=== PATIENT | female | born 1955 | race Caucasian/White ===

== ENCOUNTER → 2024-11-12 11:19 | Outpatient (REF) | payer MEDICARE, OTHER, SELFPAY | LOC: RAD 11:19 | PROVIDERS: ATTENDING PHYSICIAN Student in an Organized Health Care Education/Training Program; FAMILY PHYSICIAN Internal Medicine | DX: M25.541 Pain in joints of right hand (principal); M25.542 Pain in joints of left hand; M79.641 Pain in right hand | CPT/HCPCS: 76882 ==